=== PATIENT | female | born 1985 | race Caucasian/White ===

== ENCOUNTER 2018-04-10 21:52 | Day surgery (SDC) | payer BC ==
[2018-04-10 22:39] VITALS: BMI 29.6
[2018-04-10] MEDS ORDERED: Metoclopramide HCl 10 MG/2 ML VIAL IVP PRN (23:12)
[2018-04-10] MEDS ORDERED: diphenhydrAMINE 50 MG/ML VIAL IVP PRN (23:13)
--- NOTE | 2018-04-13 07:48 | PRG ---
DATE OF SERVICE: 04/10/2018 PRIMARY SHIPPING TRACK SUPERVISOR: Dr. Eitan Fam. CHIEF COMPLAINT: Elevated blood pressure at home. HISTORY OF PRESENT ILLNESS: The patient is a 32-year-old G4, P3 female with an intrauterine at 37 weeks and 2 days, who is presenting to Labor and Delivery after experiencing a couple of elevated blood pressures at home. She reports systolic up to the 140s, diastolic in the 90s to 100. The patient also reports that she has been experiencing a headache. This lasted for few days, it was pulsatile associated with nausea, light sensitivity, and the patient denies any fever or falls. She denies chest pain, shortness of breath. She denies diarrhea or constipation. Denies any new rashes. Denies hip pain, muscle weakness, and knee problems. Denies urinary urgency. PAST MEDICAL HISTORY: The patient has a history of blood transfusion. PAST SURGICAL HISTORY: Two prior C-sections. SOCIAL HISTORY: Denies drug, alcohol, or tobacco use. ALLERGIES: PENICILLIN. OB HISTORY: The patient has had three term pregnancies. OB LABS: Blood type is O positive, antibody screen is negative. Rubella immune. Hepatitis B surface antigen nonreactive in the first trimester. RPR nonreactive in the first trimester. HIV nonreactive in the first trimester. One-hour Glucola was 184, 3-hour test is unavailable. HIV in the third trimester is nonreactive. RPR in the third trimester is nonreactive. REVIEW OF SYSTEMS: Per HPI. PHYSICAL EXAMINATION: VITAL SIGNS: Blood pressures have remained in the normal range during her stay with the exception of one mild ranged pressure of 152/84, which occurred when she was lying on the couch. The remaining pressures are in the 120s-130s/70s-80s, heart rates in the 80s to 90s, respiratory rate 15, temperature 98.4. GENERAL: She appears to be in no acute distress. She is alert and oriented, cooperative, and pleasant to interact with. HEAD: Normocephalic, atraumatic. LUNGS: Clear to auscultation bilaterally. HEART: Regular rate and rhythm. ABDOMEN: Soft, gravid, and nontender. EXTREMITIES: Nontender, nonedematous. : Exam has been deferred. heart tracing baseline in the 140s with moderate long-term variability, positive 15 x 15 accelerations, no decelerations. Tocometer does not show any uterine contraction. ASSESSMENT AND PLAN: The patient is a 32-year-old G4, P3 female with an intrauterine at 37 weeks and days with headache consistent with migraines and no evidence of elevated blood pressure. The patient during her stay has been treated with IV Reglan and Benadryl with successful resolution of her headache. Over the course of her stay, the patient's blood pressures remained normal. The patient does have reactive NST with resolution of her headache and no elevated blood pressure. The patient has been discharged to home with instructions to follow up with her primary OB as scheduled. Job ID: [id number]
== END 2018-04-11 00:10 | disposition home or self-care (01) ==
LOC: L&D/OP 21:52
PROVIDERS: ATTEND Obstetrics & Gynecology
DX: O99.89 Other specified diseases and conditions complicating pregnancy, childbirth and the puerperium (principal); R51 Headache; Z3A.37 37 weeks gestation of pregnancy; Z88.0 Allergy status to penicillin
CPT/HCPCS: J1200; J2765

== ENCOUNTER 2018-04-16 15:42 | Inpatient (IN) | payer BC, OTHER ==
[~2018-04-16 15:42] MED LIST: ePHEDrine/0.9% NaCl/PF SYRINGE 50 mg/10 ml ONE
[2018-04-16 16:20] VITALS: BMI 29.0
[2018-04-16] MEDS ORDERED: Calcium Gluc 4.6 MEQ/10 ML (100 MG/ML) SLOW IVP PRN (16:54)
[2018-04-16] MEDS ORDERED: Clindamycin/D5W 900 MG in Premix Bag 1 BAG IVPB SCH (17:00)
[2018-04-16] MEDS ORDERED: Gentamicin Sulfate 120 MG in Premix Bag 1 BAG IVPB SCH (17:00)
[2018-04-16] MEDS ORDERED: Bicitra 30 ML UDCUP PO SCH (17:00)
[2018-04-16] MEDS ORDERED: Magnesium Sulfate 20 gm/500 ml 20 GM/500 ML BAG IVPB SCH (17:00)
[2018-04-16] MEDS ORDERED: Magnesium Sulfate 20 GM/WATER 500 ML BAG IVPB SCH (17:00)
--- NOTE | 2018-04-16 17:03 | PDOC.LDHP ---
Labor and Delivery H&P Chief complaint: other (Sent for new DX hypertension at 38 weeks with symptoms) HPI: Patient of Dr Narayanan Location: L&D Reason for eval: sent from clinic for RUQ pain with BP of 148/70 in office. HPI: 32 yo HX CS x 3 here at 38 weeks 0 days with c/o RUQ pain and now with LAKHANI. Noted to have BPs: 131/91, 131/96, 154/90 in L&D. Due to symptoms of LAKHANI and RUQ pain, the decision was made to admit her for repeat CS as EGA 38 weeks. Mag sulfate to begin. She has no VB, no LOF. Good FM, no visual changes. review of Systems: complete ROS performed and as per HPI Current gestational age (weeks): 38 (0 days) Grav: 4 Para: 3 OB History Details: CS x 3 Current complications: gestational diabetes (Diet controlled) Abnormal US findings: No Current medications: pre-sola vitamins Previous surgical history: low tranverse CS Allergies/Adverse Reactions: Allergies Allergy/AdvReac Type Severity Reaction Status Date / Time Penicillins Allergy Unknown Verified 04/10/18 22:30 Social history: none - Physical Exam Vital signs reviewed and normal: yes ( above, afevrile) General: NAD Heart: RRR Lungs: CTAB Abdomen: gravid FHT: category 1 Sherwood contractions every: irritablity - Assessment Early term (38 weeks) symptomatic PIH= Severe preeclampsia. Pror CS x 3; also cleared for risk reducing salpingectomy per Dr narayanan. - Plan Plan: admit to L&D, informed consent obtained, magnesium for seizure prophylaxis , anesthesia consult for pain management, other (I have ordered Mag Sulfate, we will plan on repeat CS. Anesthesia consult. PCN allergy, so ordered clinda andf gent for CS prophylaxis. CBC and CMP ordered. SCDs)
[2018-04-16] MEDS ORDERED: Promethazine HCl 25 MG/ML VIAL IM PRN ×4 (17:07→20:52)
[2018-04-16] MEDS ORDERED: Butorphanol Tartrate 1 MG/ML VIAL SLOW IVP PRN (17:07)
[2018-04-16] MEDS ORDERED: Ondansetron PF 4 MG/2 ML Vial IVP PRN ×3 (17:07→20:52)
--- NOTE | 2018-04-16 17:27 | PDOC.EVN ---
Event Note - Event Note Event Note: L&D update: Patient states HX PPH in past...we will T&C. TXA if needed. Mag to begin preCS. Last BP 156/105....if persists at >160/110, will order acute therapy.
[2018-04-16] MEDS: Lactated Ringer's 1,000 ML IV SCH (17:29)
[2018-04-16] MEDS ORDERED: Magnesium Sulfate 20 gm/500 ml 20 GM/500 ML BAG ONE (17:44)
[2018-04-16 17:56] LABS: Hemoglobin 10.5 g/dL (12.0-16.0); Mean Corpuscular HGB CONC 31.7 g/dL (32.0-36.0); Mean Corpuscular Hemoglobin 23.8 pg (27.0-31.0); Mean Corpuscular Volume 75.1 fL (78.0-98.0); Platelet Count 254 thou/uL (130-400); RBC Distribution Width 15.3 % (11.5-14.5); Red Blood Cell (RBC) Count 4.39 mill/uL (4.20-5.40); White Blood Cell (WBC) Count 13.4 thou/uL (4.8-10.8)
[2018-04-16] MEDS ORDERED: Bupivacaine 0.75% W/DEXTROSE 8.25% 2 ML AMP ONE (18:12)
[2018-04-16] MEDS ORDERED: Morphine PF 1 MG/ML SYR ONE (18:12)
[2018-04-16] MEDS ORDERED: Oxytocin 10 UNITS/ML VIAL ONE ×2 (18:13)
[2018-04-16] MEDS ORDERED: Lidocaine 1% PF 5 ML VIAL ONE (18:14)
[2018-04-16 18:15] LABS: ALT (SGPT) Less than 7 U/L (8-55); AST (SGOT) 16 U/L (5-34); Albumin 3.5 g/dL (3.5-5.0); Alkaline Phosphatase 200 U/L (40-150); Anion Gap 16 mmol/L (10-20); BUN (Urea Nitrogen) 6 mg/dL (7.0-18.7); Bilirubin, Total 0.5 mg/dL (0.2-1.2); Calc. Creatinine Clearance 135 mL/min (70-130); Calcium 8.9 mg/dL (7.8-10.44); Carbon Dioxide 20 mmol/L (22-29); Chloride 104 mmol/L (98-107); Estimated GFR-MDRD Greater than 90; Globulin 3.3 g/dL (2.4-3.5); Glucose 67 mg/dL (70-105); Potassium 3.8 mmol/L (3.5-5.1); Protein, Total 6.8 g/dL (6.0-8.3); Sodium 136 mmol/L (136-145)
[2018-04-16 18:29] LABS: Syphilis Antibody Nonreactive (Nonreactive); Syphilis Antibody Index 0.04 S/CO (<1.00 Non-Reactive)
[2018-04-16 18:38] LABS: HBSAg Index 0.19 S/CO (0-0.99); HIV (1/2) Antibody/Antigen Non-Reactive (NonReactive); HIV 1/2 INDEX 0.08 S/CO (<1.00); Hep B Surf Ag Non-Reactive S/CO (NonReactive)
[2018-04-16] MEDS ORDERED: ePHEDrine/0.9% NaCl/PF SYRINGE 50 mg/10 ml ONE (18:46)
[2018-04-16] MEDS ORDERED: Carboprost 250 MCG/ML AMP ONE (18:54)
[2018-04-16] MEDS ORDERED: PHENYLEPHRINE-NS 100 MCG/ML 10 ML SYRINGE ONE (19:02)
[2018-04-16] MEDS ORDERED: Promethazine HCl 25 MG/ML VIAL ONE ×3 (19:04→21:34)
[2018-04-16] MEDS ORDERED: Ketorolac Tromethamine 30 MG/ML VIAL IVP PRN (19:16)
[2018-04-16] MEDS ORDERED: Naloxone HCl 0.4 mg/ml Vial IV PRN ×2 (19:16→20:52)
[2018-04-16] MEDS ORDERED: Promethazine HCl 25 MG SUPP PR PRN ×2 (19:16→20:52)
[2018-04-16] MEDS ORDERED: Hydrocerin (Eucerin) Cream 120 gm Jar TOP PRN ×2 (19:16→20:52)
[2018-04-16] MEDS ORDERED: Naloxone HCl 0.4 mg/ml Vial IVP PRN ×4 (19:16→20:52)
[2018-04-16] MEDS ORDERED: diphenhydrAMINE 50 MG/ML VIAL IVP PRN ×2 (19:16→20:52)
[2018-04-16] MEDS ORDERED: Communication Order-Pharmacy FS SCH ×2 (19:30→21:00)
[2018-04-16] MEDS ORDERED: Ketorolac Tromethamine 30 MG/ML VIAL ONE (19:42)
[2018-04-16] MEDS ORDERED: NS / Oxytocin 40 units/1000ml 1,000 ML ONE (20:31)
[2018-04-16] MEDS ORDERED: Ondansetron HCl/PF 4 MG/2 ML Vial IVP PRN (20:51)
[2018-04-16] MEDS ORDERED: Morphine Sulfate 2 MG/ML SYRINGE SLOW IVP PRN (20:51)
[2018-04-16] MEDS ORDERED: Promethazine HCl 25 MG/ML VIAL SLOW IVP PRN (20:51)
[2018-04-16] MEDS ORDERED: Morphine 4 MG/ML VIAL ONE (20:52)
[2018-04-16] MEDS ORDERED: Meperidine HCl/PF 25 MG/ML VIAL ONE ×2 (21:30→21:31)
[2018-04-16] MEDS ORDERED: Misoprostol 200 MCG TAB ONE (21:34)
[2018-04-16] MEDS ORDERED: Promethazine HCl 25 MG/ML VIAL IM SCH (22:30)
[2018-04-16] MEDS ORDERED: Meperidine HCl/PF 25 MG/ML VIAL SLOW IVP SCH (22:30)
--- NOTE | 2018-04-17 00:46 | PRG ---
DATE OF SERVICE: 04/16/2018 SUBJECTIVE: The patient is a 32-year-old female, immediately postop repeat for preeclampsia at 38 weeks. I was called to the recovery room after the attending nurse noticed that the patient was not having any vaginal bleeding and then what appeared to be an expanding uterus. On exam, the patient was noted to have uterus several centimeters above the umbilicus, and on bimanual, the cervix was dilated to about 2 cm and with a feel like a bulging membrane. Membrane was punctured, and with bimanual manipulation , the uterine contents of clot was evacuated with some difficulty. The patient was given 75 mg of Demerol and 25 mg of Phenergan as the patient was having difficulty tolerating the procedure. After the medication, the patient it tolerated well, and we were able to evacuate most of the uterine clot, and on manual evaluation, the patient was noted to have a lot of membrane in the lower uterine segment. With some difficulty, a good portion of it was removed, and the uterus after this involuted to several centimeters below the umbilicus and was firm with minimal to scant bleeding. During the process, the patient was given a gram of Cytotec rectally. Vital signs at the initiation of the procedure was 95/54, heart rate of 96, saturating 100% on room air. Total blood loss estimated to be about 300 mL. Quantitative blood loss was not available at the time of dictation. The patient at this time is stable with her most recent blood pressure being 105 /66, heart rate of 111, saturating 100% on room air. Given the extensive uterine manipulation, the patient will be re-dosed with gentamicin and clindamycin when appropriate as the patient is allergic to penicillin and was dosed with both these of these medications at time of . Her primary OB, Dr. Fam, has been notified of the event. Job ID: [id number] [facility]
[2018-04-17] MEDS: Clindamycin/D5W 900 MG in Premix Bag 1 BAG IVPB SCH ×2 (04:51→09:50)
[2018-04-17 05:43] LABS: Hemoglobin 7.7 g/dL (12.0-16.0); Mean Corpuscular HGB CONC 31.2 g/dL (32.0-36.0); Mean Corpuscular Hemoglobin 24.7 pg (27.0-31.0); Mean Corpuscular Volume 79.1 fL (78.0-98.0); Mean Platelet Volume 8.9 fL (7.4-10.4); Platelet Count 275 thou/uL (130-400); RBC Distribution Width 15.3 % (11.5-14.5); Red Blood Cell (RBC) Count 3.14 mill/uL (4.20-5.40); White Blood Cell (WBC) Count 19.4 thou/uL (4.8-10.8)
[2018-04-17] MEDS ORDERED: Gentamicin Sulfate 290 MG in Sodium Chloride 0.9% 100 ML IVPB SCH (06:00)
[2018-04-17] MEDS: Ketorolac Tromethamine 30 MG/ML VIAL IVP PRN ×3 (09:15→20:23)
[2018-04-17] MEDS: Lactated Ringer's 1,000 ML IV SCH (09:16)
--- NOTE | 2018-04-17 10:49 | PRG ---
DATE OF SERVICE: 04/17/2018 TIME OF SERVICE: 0952 hours. SUBJECTIVE: The patient is Labor and Delivery this morning status post repeat with hemorrhage and severe preeclampsia. The patient states she feels quite weak and gets dizzy with sitting up. OBJECTIVE: VITAL SIGNS: blood pressures that have improved significantly into the 130s over 140s over 80s. Her pulse is running between 100 and 110. She is afebrile. Her respirations are 18. LUNGS: Reveal clear to auscultation lungs. HEART: Regular rate and rhythm, except mild tachycardia. ABDOMEN: Soft, nontender, and nondistended. Her fundus is firm, normal height, and her bandage is dry. EXTREMITIES: Without clubbing, cyanosis, or edema. 1+ DTRs. LABORATORY DATA: The patient's hematocrit has gone from 33% preoperatively to 24.8% postoperatively. White count was elevated preoperatively at 13.4, now is at 19.4. The patient has had good urine output. IMPRESSION: Anemia, status post hemorrhage with severe preeclamptic features, now improved blood pressure. PLAN: 1. Transfuse 1 unit of PRBCs. 2. Continue magnesium until mid afternoon and anticipate discharging at that time. 3. Anticipate discharge to floor later this evening. Hand off the patient's care with Dr. Oropeza will be done this morning. Job ID: [id number]
--- NOTE | 2018-04-17 12:52 | OP ---
DATE OF PROCEDURE: 04/16/2018 PREOPERATIVE DIAGNOSES: Severe preeclampsia with headache and right upper quadrant pain with elevated blood pressures at 38 weeks' gestation with previous section x3, approved for risk-reducing salpingectomy. POSTOPERATIVE DIAGNOSES: Severe preeclampsia with headache and right upper quadrant pain with elevated blood pressures at 38 weeks' gestation with previous section x3, approved for risk-reducing salpingectomy. PROCEDURES PERFORMED: Repeat low-transverse section without extension, bilateral salpingectomy. NECKTIE MAKER: Yinka Alanis MD. ANESTHESIA: Subarachnoid block by Dr. Nelson. MEDICATIONS: Gentamycin and clindamycin. PREINCISION: DVT prophylaxis with SCDs. DRAINS: Edmonds to gravity. OPERATIVE FINDINGS: 1. Vigorous female infant, clear fluid, nursery weight and Apgars pending. 2. Uterus with [id number] atony immediately postdelivery, but with significant improvement with Pitocin and Hemabate. 3. Normal-appearing tubes, removed with good hemostasis of the mesosalpinx. COUNTS: Correct at the end of the procedure. DISPOSITION: Recovery room in good condition. DESCRIPTION OF PROCEDURE: After obtaining appropriate operative consent, the patient was brought back to the operating room with subarachnoid block achieved without difficulty. The patient was prepped and draped in usual manner. Previous Pfannenstiel incision was incised sharply and dissected down to the fascia, extended superiorly and laterally with curved Nair scissors. Rectus dissected off sharply, superiorly and inferiorly and divided in the midline. Peritoneum entered bluntly and taken without trauma to the underlying viscera. Thin filmy adhesions to the anterior wall were noted and these were taken down in a blunt and sharp method. The Rk O retractor was placed inside. Very thin lower uterine segment was noted and a hysterotomy was made, extended superiorly and laterally with finger fractionization clear fluid noted. 's head was elevated due to hysterotomy, delivered on to the abdomen. The cord was cut and clamped and handed off to Team in attendance. Usual cord blood sample was obtained. Placenta removed manually. Hysterotomy was noted to be without extension and closed using a running locking #1 Monocryl suture. At this time, the uterine atony was noted and Hemabate was administered. With continued Pitocin and Hemabate, the uterine atony resolved. The hysterotomy was closed using a running locking #1 Monocryl suture in a single layer. After this was done, a sponge was placed across this and the fundus of the uterus was elevated. The right and left adnexa were easily identified. On the left, windows were created between the vascular pedicles of the mesosalpinx. Alejandra clamp was placed across, transected, and ligated with 0 chromic suture. Fallopian tube being completely excised. It was sent for pathology. On the patient's right, the identical procedure was carried out under my guidance by Dr. Yinka Alanis in the same technique. After this was completed, reinspection of the hysterotomy revealed it to be dry. Gutters were irrigated out and the hysterotomy was still noted to be dry. The Rk O retractor was removed. Rectus was noted to be dry. Fascia was reapproximated using running continuous 0 PDS suture. Subcutaneous tissue was irrigated and rendered hemostatic with Bovie cautery and reapproximated using a 3-0 chromic. Skin reapproximated using uzma. The patient was taken to recovery room, care in good condition. Job ID: [id number]
--- NOTE | 2018-04-17 12:53 | PDOC.EVN ---
Event Note - Event Note Event Note: Called by labor RN. Pt. with hives, denies SOB or other sxs. Just finished PRBC transfusion. VS stable. Will give benadyl IV and observe closely. senior staff specialized employment aware.
--- NOTE | 2018-04-17 19:21 | PDOC.EVN ---
Event Note - Event Note Event Note: BPs look good. AF. Feeling better. UO excellent. Will DC Mg at 24 hrs and transfer to floor. Check H/H in AM.
[2018-04-17] MEDS ORDERED: Ondansetron PF 4 MG/2 ML Vial IVP PRN (20:58)
[2018-04-17] MEDS ORDERED: Adacel (T-DAP) 0.5 ML SYRINGE IM ONE (20:58)
[2018-04-17] MEDS ORDERED: HYDROcodone/Acetaminophen 5/325 mg Tablet PO PRN (20:58)
[2018-04-17] MEDS ORDERED: Acetaminophen 325 MG TAB PO PRN (20:58)
[2018-04-17] MEDS ORDERED: Meperidine HCl/PF 25 MG/ML VIAL IM PRN (20:58)
[2018-04-17] MEDS ORDERED: NS / Oxytocin 40 units/1000ml 1,000 ML IV SCH (20:58)
[2018-04-17] MEDS ORDERED: diphenhydrAMINE 25 MG CAP PO PRN (20:58)
[2018-04-17] MEDS ORDERED: Promethazine HCl 25 MG/ML VIAL IM PRN (20:58)
[2018-04-17] MEDS: Ibuprofen 800 MG TAB PO SCH (22:30)
[2018-04-18] MEDS: HYDROcodone/Acetaminophen 5/325 mg Tablet PO PRN ×5 (01:14→20:34)
[2018-04-18] MEDS: Simethicone Chewable 80 MG TAB PO PRN ×2 (01:14→20:34)
--- NOTE | 2018-04-18 01:55 | PDOC.PP ---
Post Progress Note Post Day #: POD#2 Subjective: Resting, no complaints. PO intake tolerated: yes Flatus: no Vital Signs (12 hours) Temp Pulse Resp BP Pulse Ox 04/17/18 22:13 98.2 F 83 16 122/62 99 Weight Weight 72.121 kg - Physical Examination General: NAD Respiratory: non-labored breathing Abdominal: no distention Skin: CS incision dry & intact Neurological: no gross focal deficits Psychiatric: normal affect Result Diagrams: 04/17/18 05:06 04/16/18 17:36 Additional Labs: Post Labs Blood Type O POSITIVE 04/16/18 17:36 Hep Bs Antigen Non-Reactive S/CO (NonReactive) 04/16/18 17:36 - Assessment/Plan Doing well. Mg stopped last PM. No further rash s/p PRBC transfusion. Advance diet. Ambulate.
[2018-04-18] MEDS: Lactated Ringer's 1,000 ML IV SCH ×3 (02:22→18:20)
[2018-04-18] MEDS: Ibuprofen 800 MG TAB PO SCH ×3 (05:06→20:34)
[2018-04-18 06:52] LABS: Hemoglobin 7.7 g/dL (12.0-16.0); Mean Corpuscular HGB CONC 33.4 g/dL (32.0-36.0); Mean Corpuscular Hemoglobin 26.8 pg (27.0-31.0); Mean Corpuscular Volume 80.2 fL (78.0-98.0); Mean Platelet Volume 8.2 fL (7.4-10.4); Platelet Count 203 thou/uL (130-400); RBC Distribution Width 16.3 % (11.5-14.5); Red Blood Cell (RBC) Count 2.87 mill/uL (4.20-5.40); White Blood Cell (WBC) Count 10.4 thou/uL (4.8-10.8)
--- NOTE | 2018-04-18 08:06 | PDOC.EVN ---
Event Note - Event Note Event Note: F/u HCT from 1 unit PRBC was 23 this AM...we will check at 1600 today
[2018-04-18] MEDS ORDERED: Ferrous Sulfate 325 MG TAB PO PRN (09:48)
[2018-04-18] MEDS: Docusate 100 MG CAP PO PRN ×2 (11:16→20:34)
[2018-04-18 17:22] LABS: Hemoglobin 7.9 g/dL (12.0-16.0)
[2018-04-19] MEDS: HYDROcodone/Acetaminophen 5/325 mg Tablet PO PRN ×3 (00:48→09:18)
[2018-04-19] MEDS ORDERED: Lanolin Ointment 7 GM TUBE TOP PRN (01:00)
--- NOTE | 2018-04-19 01:24 | DIS ---
DATE OF ADMISSION: 04/16/2018 DATE OF DISCHARGE: 04/19/2018 PRINCIPAL DIAGNOSES: 1. Severe preeclampsia based on symptoms. 2. 38-week . 3. Prior section x3. 4. The patient desires risk reduction salpingectomy. 5. Mild hemorrhage. 6. 1 unit packed red blood cell transfusion. 7. Mild blood transfusion reaction. PRINCIPAL PROCEDURES: Repeat section and risk reduction salpingectomy by Dr. Fam. HOSPITAL COURSE: In brief, this patient was admitted on 04/16/2018 with elevated blood pressures and a complaint of mid epigastric discomfort and headache. She underwent a repeat by Dr. Fam as well as a risk reduction salpingectomy. For full details on that surgery, please turn to the operative report dated that day. The manager surgical for the procedure was Dr. Yinka Alanis. The patient was noted to have an estimated blood loss of about 900 mL. She was written for 1 unit packed red blood cells per Dr. Fam. With this transfusion, the patient was noted to have a mild hives reaction, which responded to medication. The patient's post-transfusion hematocrit value was 24.4, down from an original value that was preop of 33.0. When she was admitted, the patient also had [facility] labs drawn, which showed absence of thrombocytopenia, normal AST and ALT, and normal creatinine. Urine protein was negative. I evaluated the patient on 04/16/2018, when she was after her magnesium sulfate prophylaxis and after she had received her blood transfusion. The patient's blood pressures ranged from 110/60 to 126/71. She was afebrile with a T-max of 98.6. The incision was clean, dry, and intact, and had uzma in place. There was no evidence of ileus or distention on my exam. REVIEW OF SYSTEMS: She stated that she was ambulatory and passing gas, but has not had a bowel movement. She was comfortable with going home on the day of discharge set as 04/19/2018 at noon. DISPOSITION: Home. DISCHARGE MEDICATIONS: I believe Dr. Fam has left discharge medications in the pharmacy, but I have also left a paper prescription for Motrin and Tylenol No.3 with a dispense number of 10 for the Tylenol No.3. I advised the patient that if she had medications already ordered by Dr. Fam that she should tear up this prescription with no need to fill it. She will follow up at [facility] next week on Friday for staple removal, which will be postop day #6. Discharge instructions were given and she voiced understanding. Job ID: [id number]
[2018-04-19] MEDS: Lactated Ringer's 1,000 ML IV SCH ×3 (01:30→08:10)
[2018-04-19] MEDS: Ibuprofen 800 MG TAB PO SCH (05:04)
[2018-04-19 08:15] VITALS: BP 136/63; TEMP 98.3
[2018-04-19] MEDS ORDERED: Prenatal Vitamin 1 TAB PO SCH (09:00)
== END 2018-04-19 12:50 | disposition home or self-care (01) | DRG 785 ==
LOC: L&D/OP 15:42 → L&D 19:53 → 3SW 04-17 22:10
PROVIDERS: ADMIT Obstetrics & Gynecology; ATTEND Obstetrics & Gynecology
PROC: 10D00Z1 Extraction of Products of Conception, Low, Open Approach (ICD-10-PCS; principal; 2018-04-16)
PROC: 0UB70ZZ Excision of Bilateral Fallopian Tubes, Open Approach (ICD-10-PCS; 2018-04-16)
PROC: 30233N1 Transfusion of Nonautologous Red Blood Cells into Peripheral Vein, Percutaneous Approach (ICD-10-PCS; 2018-04-17)
DX: O14.14 Severe pre-eclampsia complicating childbirth (principal); Z3A.38 38 weeks gestation of pregnancy; Z37.0 Single live birth; O90.81 Anemia of the puerperium; D64.9 Anemia, unspecified; O72.1 Other immediate postpartum hemorrhage; O34.211 Maternal care for low transverse scar from previous cesarean delivery; T80.89XA Other complications following infusion, transfusion and therapeutic injection, initial encounter; Y84.8 Other medical procedures as the cause of abnormal reaction of the patient, or of later complication, without mention of misadventure at the time of the procedure; Y92.230 Patient room in hospital as the place of occurrence of the external cause; L50.9 Urticaria, unspecified; O24.420 Gestational diabetes mellitus in childbirth, diet controlled; Z88.0 Allergy status to penicillin
CPT/HCPCS: 36415; 36430; 51702; 80053; 81003; 83735; 85027; 86780; 86850; 86900; 86901; 87340; 87389; 88302; 99285; J1200; J1580; J1885; J2001; J2175; J2270; J2274; J2405; J2550; J2590; J3475; J3490; J7050; P9016

== ENCOUNTER 2023-02-13 10:07 | Emergency (ER) | payer SELFPAY ==
[2023-02-13] MEDS ORDERED: Morphine 4 MG/ML VIAL ONE (12:38)
[2023-02-13] MEDS ORDERED: Famotidine/PF 20 mg/2ml Vial ONE (12:38)
[2023-02-13 14:39] LABS: Troponin I Less than 0.010 ng/mL (< 0.028)
== END 2023-02-13 14:58 | disposition home or self-care (01) ==
LOC: ERS 10:07
DX: R10.11 Right upper quadrant pain (principal); I10 Essential (primary) hypertension; Z79.899 Other long term (current) drug therapy
CPT/HCPCS: 36415; 76705; 84484; 93005; 96374; 96375; J2270; S0028